=== PATIENT | male | born 1990 ===

== ENCOUNTER 2017-08-02 12:32 | Emergency (ER) | payer BC, MEDICAID, OTHER ==
[2017-08-02 12:56] VITALS: BMI 16.7
[2017-08-02 13:00] VITALS: BP 129/86; RESP 18; TEMP 98.1; O2SAT 97
--- NOTE | 2017-08-02 13:05 | C.PDOC ---
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 Patient denies trauma, fever, chills, chest pain, SOB, nausea, vomiting, weakness or numbness. Time Seen by Provider: 08/02/17 12:59 Chief Complaint (Nursing): Finger,Hand,&Wrist History Per: Patient History/Exam Limitations: no limitations Onset/Duration Of Symptoms: Sudden Onset (Today) Past Medical History Reviewed: Historical Data, Nursing Documentation, Vital Signs Vital Signs: Last Vital Signs Temp 98.1 F 08/02/17 12:56 Pulse 103 H 08/02/17 12:56 Resp 18 08/02/17 12:56 BP 129/86 08/02/17 12:56 Pulse Ox 97 08/02/17 13:36 - Medical History PMH: Asthma, HTN Family History: States: No Known Family Hx - Social History Hx Alcohol Use: No Hx Substance Use: Yes - Immunization History Hx Tetanus Toxoid Vaccination: No Hx Influenza Vaccination: No Hx Pneumococcal Vaccination: No Review Of Systems Except As Marked, All Systems Reviewed And Found Negative. Constitutional: Negative for: Fever, Chills Cardiovascular: Negative for: Chest Pain Respiratory: Negative for: Shortness of Breath Gastrointestinal: Negative for: Nausea, Vomiting Musculoskeletal: Positive for: Other ((+) Right hand redness and swelling) Neurological: Negative for: Weakness, Numbness Physical Exam - Physical Exam Appears: Non-toxic, No Acute Distress Skin: Warm, Dry, No Rash Head: Atraumatic, Normacephalic Chest: Symmetrical Cardiovascular: Rhythm Regular, No Murmur Respiratory: Normal Breath Sounds, No Rales, No Rhonchi, No Stridor, No Wheezing Extremity: Normal ROM, Capillary Refill (<2 secs), Other ((+) Right Hand - Swelling and tenderness to the proximal dorsal aspect. No streaking.) Pulses: Left Radial: Normal, Right Radial: Normal Neurological/Psych: Oriented x3, Normal Speech, Normal Motor, Normal Sensation ED Course And Treatment O2 Sat by Pulse Oximetry: 97 (RA) Pulse Ox Interpretation: Normal - Other Rad X-Ray - Right Hand X-Ray: Interpreted by Me, Viewed By Me Interpretation: No acute fractures. No FB. Medical Decision Making Medical Decision Making: PLAN: * X-Ray - Right Hand * Clindamycin PO * Motrin PO Xrays of the hand are negative, no fracture or foreign body seen. The redness was traced to track worsening of infection. Patient was instructed to follow up with the medical doctor/clinic in 2 days for wound check without fail. Disposition - Disposition Referrals: [facility] [Outside] Disposition: HOME/ ROUTINE Disposition Time: 13:39 Condition: GOOD Additional Instructions: Follow up with the medical doctor within 1-2 days without fail. Return if worsened. 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 - Scribe Statement The provider has reviewed the documentation as recorded by the Scribe Rosi Eldridge All medical record entries made by the Scribe were at my direction and personally dictated by me. I have reviewed the chart and agree that the record accurately reflects my personal performance of the history, physical exam, medical decision making, and the department course for this patient. I have also personally directed, reviewed, and agree with the discharge instructions and disposition.
[2017-08-02 14:01] VITALS: PULSE 95
--- NOTE | 2017-08-02 14:10 | RAD ---
PROCEDURE: Right Hand Radiographs. HISTORY: hand pain and redness, IVDA, r/o foregin body COMPARISON: None. FINDINGS: BONES: Normal. No fracture. JOINTS: Normal. No osteoarthritic changes. SOFT TISSUES: Diffuse mild soft tissue swelling. OTHER FINDINGS: None. IMPRESSION: Diffuse mild soft tissue swelling. No demonstrated fracture or dislocation. No radiopaque foreign body.
== END 2017-08-02 14:02 | disposition home or self-care (01) ==
LOC: C.ER 12:32 → SUPCPDRO 12:32 → C.ER 14:02
DX: L03.113 Cellulitis of right upper limb (principal)

== ENCOUNTER 2017-09-11 11:50 | Emergency (ER) | payer BC ==
[2017-09-11 11:51] VITALS: BMI 16.7
--- NOTE | 2017-09-11 12:28 | C.PDOC ---
History Of Present Illness 26 yr old male brought in via EMS, presents to the ER after being found unconscious out in the snow by PD, Narcan was administered by PD in the field. Patient in ER states he was indoors when he used Heroin IV and doesn't remember how he ended up outside. Currently denies fever, chills, chest pain, SOB, nausea , vomiting, abdominal pain, back pain, weakness or numbness. 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) Current Symptoms Are (Timing): Still Present Past Medical History Reviewed: Historical Data, Nursing Documentation, Vital Signs Vital Signs: Last Vital Signs Temp 98 F 09/11/17 14:45 Pulse 88 09/11/17 14:45 Resp 20 09/11/17 14:45 BP 118/78 09/11/17 14:45 Pulse Ox 96 09/11/17 19:00 - Medical History PMH: Asthma, HTN Family History: States: No Known Family Hx - Social History Hx Alcohol Use: No Hx Substance Use: Yes - Immunization History Hx Tetanus Toxoid Vaccination: No Hx Influenza Vaccination: No Hx Pneumococcal Vaccination: No Review Of Systems Except As Marked, All Systems Reviewed And Found Negative. 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) Head: Atraumatic, Normacephalic Eye(s): bilateral: Normal Inspection, PERRL, EOMI Oral Mucosa: Moist Neck: Normal, Normal ROM, Supple Chest: Symmetrical, No Tenderness Cardiovascular: Rhythm Regular, No Murmur Respiratory: Normal Breath Sounds, No Rales, No Rhonchi, No Stridor, No Wheezing Gastrointestinal/Abdominal: Normal Exam, Soft, No Tenderness, No Guarding, No Rebound Extremity: Normal ROM, Capillary Refill (<2 secs), No Swelling Pulses: Left Radial: Normal, Right Radial: Normal, Left Dorsalis Pedis: Normal, Right Dorsalis Pedis: Normal Neurological/Psych: Oriented x3, Normal Speech, Normal Motor ED Course And Treatment O2 Sat by Pulse Oximetry: 96 (RA) Pulse Ox Interpretation: Normal Progress Note: 1405: On reeval, patient is alert and awake. Not somnolent. At present time, patient is not requesting detox. Patient is advised to follow up with PMD or clinic in 1-2 days. Repeat heart rate is 90. Patient observed for 2 hours without change in mental status Medical Decision Making Medical Decision Making: IMPRESSION: Heroin OD PLAN: * Finger stick Disposition Counseled Patient/Family Regarding: Studies Performed, Diagnosis, Need For Followup - Disposition Referrals: [facility] [Outside] Disposition: HOME/ ROUTINE Disposition Time: 14:04 Condition: STABLE Additional Instructions: follow up with your doctor or clinic in 2 days call to make an appointment stop using drugs return to hospital if symptoms worsens or progress Instructions: Opioid Overdose (ED) Forms: [employer] [facility] (Sami), General Discharge Instructions - Clinical Impression Clinical Impression: Drug abuse, Heroin overdose - Scribe Statement The provider has reviewed the documentation as recorded by the Kaitlin Eldridge Provider Attestation: All medical record entries made by the Estebanibmilton were at my direction and personally dictated by me. I have reviewed the chart and agree that the record accurately reflects my personal performance of the history, physical exam, medical decision making, and the department course for this patient. I have also personally directed, reviewed, and agree with the discharge instructions and disposition.
[2017-09-11 14:46] VITALS: BP 118/78; PULSE 88; RESP 20; TEMP 98
[2017-09-11 19:01] VITALS: O2SAT 96
== END 2017-09-11 14:56 | disposition home or self-care (01) ==
LOC: C.ER 11:50
DX: F11.10 Opioid abuse, uncomplicated (principal); T40.1X1A Poisoning by heroin, accidental (unintentional), initial encounter